=== PATIENT | female | born 1970 | race Caucasian/White ===

== ENCOUNTER → 2021-03-10 | Outpatient (CLI) | payer BC ==
[~2021-03-10] MED LIST: ASPIRIN 325MG325 MG PO
== END ==
LOC: KOH-I 10:24
DX: M79.671 Pain in right foot (principal)
CPT/HCPCS: 73630

== ENCOUNTER → 2021-03-17 | Outpatient (CLI) | payer BC | LOC: KOH-I 09:43 | DX: M84.374A Stress fracture, right foot, initial encounter for fracture (principal) | CPT/HCPCS: 73718 ==

== ENCOUNTER → 2021-05-02 | Outpatient (CLI) | payer BC | LOC: EXRD 03-27 13:00 → KOH-I 13:50 → EXRD 14:00 → KOH-I 14:00 | DX: Z01.818 Encounter for other preprocedural examination (principal); F17.210 Nicotine dependence, cigarettes, uncomplicated; I73.9 Peripheral vascular disease, unspecified | CPT/HCPCS: 93926 ==

== ENCOUNTER → 2021-05-22 | Outpatient (CLI) | payer BC ==
[~2021-05-22] MED LIST changes: +ADIPEX-P37.5 M1 PO; +FLECTOR1 EAC1 TOP; +IBU800 MG PO; +LEVOTHYROXINE25 MC1 PO; +LEXAPRO20 MG PO; +LOSARTAN-HCTZ1 EAC2 PO; +PROTONIX40 MG PO; +TOPROL XL100 MG PO; +TYLENOL EXTRA500 MG PO
[2021-05-22 12:20] LABS: HEMOGLOBIN 14.8 gm/dl (12.3-15.3); RED BLOOD COUNT 4.53 M/UL (4.00-5.10); WHITE BLOOD COUNT 7.4 K/UL (4.5-11.0)
[2021-05-22 12:39] LABS: BUN/CREATININE RATIO 17 (0-10)
== END ==
LOC: OPSV2 10:30
PROVIDERS: Podiatrist Foot & Ankle Surgery
DX: Z01.812 Encounter for preprocedural laboratory examination (principal)
CPT/HCPCS: 36415; 80048; 85027

== ENCOUNTER → 2021-05-30 | Day surgery (SDC) | payer BC ==
[~2021-05-30] VITALS: Ht 167.6 cm; Wt 110.2 kg
== END | disposition home or self-care (01) ==
LOC: OR 05:49
DX: M72.2 Plantar fascial fibromatosis (principal); M77.31 Calcaneal spur, right foot; M76.61 Achilles tendinitis, right leg; M24.574 Contracture, right foot; G89.29 Other chronic pain; I10 Essential (primary) hypertension; F32.A Depression, unspecified; K21.9 Gastro-esophageal reflux disease without esophagitis; E03.9 Hypothyroidism, unspecified; E55.9 Vitamin D deficiency, unspecified; Z20.822 Contact with and (suspected) exposure to COVID-19; Z90.49 Acquired absence of other specified parts of digestive tract; Z98.51 Tubal ligation status
CPT/HCPCS: 73650; 76000; J0171; J0690; J1100; J1170; J1885; J2001; J2250; J2370; J2405; J2704; J2710; J2795; J3370; J7030; J7120

== ENCOUNTER → 2022-01-29 | Outpatient (CLI) | payer BC | LOC: US 15:30 | DX: I82.401 Acute embolism and thrombosis of unspecified deep veins of right lower extremity (principal); T14.8XXA Other injury of unspecified body region, initial encounter | CPT/HCPCS: 93971 ==

== ENCOUNTER → 2022-02-04 | Outpatient (CLI) | payer BC | LOC: EMI 15:50 | DX: M79.661 Pain in right lower leg (principal) | CPT/HCPCS: 73718 ==